=== PATIENT | male | born 1965 | race Caucasian/White ===

== ENCOUNTER 2020-04-22 18:51 | Emergency (ER) | payer BC ==
[~2020-04-22] VITALS: Ht 185.4 cm; Wt 113.6 kg
[2020-04-22 18:54] VITALS: BP 144/90
[2020-04-22] MEDS ORDERED: ondansetron 4mg rapidly disintigrating tab PO ONE (19:00)
[2020-04-22] MEDS ORDERED: HYDROcodone/acetaminophen 5mg/325mg tablet PO ONE ×2 (19:00→21:15)
[2020-04-22] MEDS ORDERED: ketorolac trometh. 30mg/ml inj. IV ONE (19:25)
[2020-04-22] MEDS ORDERED: ondansetron/PF 4mg/2ml inj IV ONE ×2 (19:25→19:35)
[2020-04-22 19:34] LABS: BASOPHILS # (AUTO) 0.1 X10'3 (0-0.2); BASOPHILS % (AUTO) 0.4 % (0-1); EOSINOPHILS # (AUTO) 0.1 X10'3 (0-0.9); EOSINOPHILS % (AUTO) 0.5 % (0-6); HEMATOCRIT 44.7 % (42.0-52.0); HEMOGLOBIN 14.5 g/dl (14.0-17.9); LYMPHOCYTES # (AUTO) 1.7 X10'3 (1.1-4.8); LYMPHOCYTES % (AUTO) 13.5 % (21-51); MEAN CORPUSCULAR HEMOGLOBIN 27.1 PG (27.0-31.0); MEAN CORPUSCULAR HGB CONC 32.5 g/dL (33.0-36.5); MEAN CORPUSCULAR VOLUME 83.4 FL (78-98); MONOCYTES # (AUTO) 0.6 X10'3 (0-0.9); MONOCYTES % (AUTO) 4.6 % (2-12); NEUTROPHILS # (AUTO) 10.3 X10'3 (1.8-7.7); PLATELET COUNT 295 X10'3 (140-440); RED BLOOD COUNT 5.36 X10'6 (4.70-6.10); RED CELL DISTRIBUTION WIDTH 14.2 % (11.5-14.5); WHITE BLOOD COUNT 12.7 X10'3 (4.5-11.0)
[2020-04-22] MEDS ORDERED: morphine 4 MG/ML inj SYRINge IV ONE (19:35)
[2020-04-22] MEDS ORDERED: normal saline 1000ml 1,000 ML IV ONE (19:35)
[2020-04-22 19:50] LABS: ALANINE AMINOTRANSFERASE 27 U/L (12-78); ALBUMIN 4.2 G/DL (3.4-5.0); ALBUMIN/GLOBULIN RATIO 1.3 (1.1-1.5); ALKALINE PHOSPHATASE 60 IU/L (46-116); ANION GAP 16 (8-16); ASPARTATE AMINO TRANSFERASE 35 U/L (10-37); BILIRUBIN,TOTAL 0.9 MG/DL (0.1-1.0); BLOOD UREA NITROGEN 21 MG/DL (7-18); BUN/CREATININE RATIO 15.8 (5.4-32.0); CHLORIDE 105 MMOL/L (99-107); CREATININE 1.33 MG/DL (0.60-1.10); GLUCOSE 111 MG/DL (70-104); LIPASE 156 U/L (73-393); POTASSIUM 3.7 MMOL/L (3.5-5.1); SODIUM 141 MMOL/L (135-145); TOTAL CARBON DIOXIDE 19.8 MMOL/L (24-32); TOTAL PROTEIN 7.4 G/DL (6.4-8.2); eGFR 56 ML/MIN
[2020-04-22 20:36] LABS: COLOR,URINE YELLOW (Yellow); GLUCOSE, URINE NEGATIVE (Neg); KETONES,URINE 15 mg/dl (Neg); LEUKOCYTE ESTERASE ,URINE NEGATIVE (Neg); NITRITES, URINE NEGATIVE (Neg); OCCULT BLOOD,URINE LARGE (Neg); PROTEIN,URINE 100 mg/dl (Neg)
[2020-04-22 20:38] LABS: CLARITY,URINE SLIGHTLY CLOUDY (Clear)
[2020-04-22 20:39] LABS: UA COLLECTION TYPE CLN CATCH MIDSTREAM
[2020-04-22] MEDS ORDERED: HYDR-4383 PO (21:10)
[2020-04-22] MEDS ORDERED: ONDA4TAB6 PO (21:10)
[2020-04-22] MEDS ORDERED: FLO0.4C PO (21:17)
== END 2020-04-22 21:30 | disposition home or self-care (01) ==
LOC: ER 18:54 → EDBD 18:54 → ER 21:30
DX: R10.9 Unspecified abdominal pain (principal); Z87.442 Personal history of urinary calculi; Z72.89 Other problems related to lifestyle; Z79.899 Other long term (current) drug therapy
CPT/HCPCS: 36415; 80053; 81001; 83690; 85025; 96361; 96374; 96375; 99284; J1885; J2270; J2405; J7030